=== PATIENT | female | born 1975 | race African-American/Black ===

== ENCOUNTER 2023-10-17 05:05 | Inpatient (IN) | payer OTHER, SELFPAY ==
[2023-09-27 12:17] VITALS: BMI 26.5
[2023-09-27 13:01] LABS: % Basophils 0.8 % (0-2); % Eosinophils 7.3 % (0-6); % Immature Granulocytes 0.2 % (0-0.5); % Lymphocytes 29.9 % (20.5-51.1); % Monocytes 13.1 % (1.7-9.3); % Neutrophils 48.7 % (42.2-75.2); Absolute Basophils 0.1 10^3/uL (0-0.2); Absolute Eosinophils 0.5 10^3/uL (0-0.7); Absolute Lymphocytes 1.8 10^3/uL (1.2-3.4); Absolute Monocytes 0.8 10^3/uL (0.1-0.6); Hematocrit 33.9 % (37.0-47.0); Mean Corp Hgb Conc. 32.4 g/dL (33.0-37.0); Mean Corpuscular Hgb 28.7 pg (27.0-31.0); Mean Corpuscular Volume 88.5 fL (81.0-99.0); Mean Platelet Volume 10.2 fL (7.4-10.4); Nucleated Red Blood Cells % 0 %; Platelet Count 298 10^3/uL (130-400); Red Blood Cell Count 3.83 10^6/uL (4.20-5.40); Red Cell Dist. Width 19.1 % (11.5-14.5); White Blood Cell Count 6.1 10^3/uL (4.8-10.8)
[2023-09-27 13:02] LABS: Urine Albumin Negative (Neg - Trace); Urine Bilirubin Negative (Negative); Urine Character Clear (Clear); Urine Color Yellow; Urine Glucose Negative (Negative); Urine Ketone Trace (Negative); Urine Leukocyte Negative (Negative); Urine Nitrite Negative (Negative); Urine Occult Blood Trace (Negative); Urine Urobilinogen Negative (Neg - 1+)
[2023-09-27 13:10] LABS: Urine Bacteria Few (Negative); Urine Mucus Few; Urine Red Blood Cell 0-2 /HPF (0-2); Urine Squamous Cell 16-20 /LPF (Few); Urine White Cell 0-2 /HPF (0-5)
[2023-09-27 13:12] LABS: INR 1.02; PT 13.2 Sec (11.4-14.6)
[2023-09-27 13:13] LABS: APTT 29.4 Sec (23.4-35.0)
[2023-09-27 13:34] LABS: ALT (SGPT) 12 U/L (0-35); AST (SGOT) 20 U/L (14-36); Albumin 4.2 g/dl (3.5-5.0); Alkaline Phosphatase 61 U/L (38-126); Blood Urea Nitrogen 12 mg/dl (7-17); Calcium 9.3 mg/dl (8.4-10.2); Carbon Dioxide 28 mmol/L (22-30); Chloride 103 mmol/L (98-107); Direct Bilirubin 0.2 mg/dl (0.0-0.4); Estimated Creatinine Clearance 101 ml/min; Glucose 83 mg/dl (70-99); Potassium 3.9 mmol/L (3.5-5.1); Sodium 135 mmol/L (135-145); Total Bilirubin 0.4 mg/dl (0.2-1.3); Total Protein 7.3 g/dl (6.3-8.2); eGFR > 60.00
[2023-09-27 14:07] LABS: Glycohemoglobin (HgbA1c) 4.9 % (4.0-5.6)
--- NOTE | 2023-09-27 14:53 | CM ---
spoke to pt in PAT's, we discussed preop MVR teaching including driving and lifting restrictions. she is prev indep, lives with her husb in a ranch home with a basement and 8 steps to enter. she denies dme's. she has the cardiac educ book, soap and
instructions. she is agreeable to [facility] after dc, and requested [facility]- they will be set up to follow INR checks. plan is for mechanical MVR 10/17/23, cm role explained and all questions answered.
[2023-10-17] VITALS (9 sets, daily range): BP systolic 94–113; BP diastolic 61–83; PULSE 78; BMI 25.6
[2023-10-17] MEDS: LOPRESSOR 25 MG PO (05:45)
[2023-10-17] MEDS: PROTONIX 40 MG PO (05:45)
[2023-10-17] MEDS: MAGNESIUM OXIDE 500 MG PO (05:45)
[2023-10-17] MEDS: BACTROBAN 2% OINTMENT 1 APPLIC NASAL ×2 (05:46→20:05)
[2023-10-17 06:00] LABS: HCG, Urine Qualitative Screen Negative
--- NOTE | 2023-10-17 06:22 | W.CVOR.SURPR ---
CVOR Surgeon Immed Pre Op
-
I have examined this patient prior to performance of the scheduled procedure.
The patient's condition is unchanged from the time of the dictated/written History and
Physical and the patient is able to undergo the scheduled procedure.
MV Replacement (Mechanical Prosthesis)
[2023-10-17 07:27] LABS: Urine Albumin Negative (Neg - Trace); Urine Bilirubin Negative (Negative); Urine Character Clear (Clear); Urine Color Straw; Urine Glucose Negative (Negative); Urine Ketone 1+ (Negative); Urine Leukocyte Negative (Negative); Urine Nitrite Negative (Negative); Urine Occult Blood Negative (Negative); Urine Urobilinogen Negative (Neg - 1+); Urine pH 6.5 (5.0-9.0)
[2023-10-17 07:41] LABS: ACT+ - POC 85 Seconds (82-134); B.E. - POC -0.9 mmol/L; Glucose - POC 94 mg/dl (65-99); HCO3 - POC 23 mmol/L (21-29); Hematocrit - POC 29 % PCV (37-47); Hemodilution- POC No; Hemoglobin Calculated - POC 9.8; Ionized Calcium - POC 1.14 mmol/L (1.12-1.27); O2 Saturation %Calculated-POC 99.9 5 (92-96); PCO2 - POC 36 mmHg (35-45); PO2 - POC 295 mmHg (80-100); Potassium - POC 2.7 mmol/L (3.6-5.0); Sodium - POC 140 mmol/L (135-145); pH - POC 7.42 (7.35-7.45)
[2023-10-17 08:33] LABS: ACT+ - POC 461 Seconds (82-134)
--- NOTE | 2023-10-17 08:42 | CM ---
reviewed chart. Mrs. Daly is in the operating room today. Prior to admission she resides with her spouse in a rancher style home with eight steps to enter. Prior to admission he was independent with ambulation and adls. She does not have any DME
in the home. She is agreeable to [facility] for nursing and INR blood draws. Medical work-up in progress, The discharge plan is to return home with her spouse and [facility] when medically stable.
[2023-10-17 08:59] LABS: ACT+ - POC 437 Seconds (82-134)
[2023-10-17 09:06] LABS: B.E. - POC -0.2 mmol/L; Glucose - POC 128 mg/dl (65-99); HCO3 - POC 24 mmol/L (21-29); Hematocrit - POC 23 % PCV (37-47); Hemodilution- POC Yes; Hemoglobin Calculated - POC 7.7; Ionized Calcium - POC 0.85 mmol/L (1.12-1.27); PCO2 - POC 38 mmHg (35-45); PO2 - POC 386 mmHg (80-100); Potassium - POC 4.7 mmol/L (3.6-5.0); Sodium - POC 136 mmol/L (135-145); pH - POC 7.41 (7.35-7.45)
[2023-10-17 09:31] LABS: B.E. - POC 0.1 mmol/L; Glucose - POC 177 mg/dl (65-99); HCO3 - POC 25 mmol/L (21-29); Hematocrit - POC 33 % PCV (37-47); Hemodilution- POC Yes; Hemoglobin Calculated - POC 11.3; Ionized Calcium - POC 0.96 mmol/L (1.12-1.27); O2 Saturation %Calculated-POC 99.8 5 (92-96); PCO2 - POC 41 mmHg (35-45); PO2 - POC 249 mmHg (80-100); Potassium - POC 4.3 mmol/L (3.6-5.0); Sodium - POC 136 mmol/L (135-145); pH - POC 7.39 (7.35-7.45)
[2023-10-17 09:39] LABS: ACT+ - POC 586 Seconds (82-134)
[2023-10-17 10:31] LABS: ACT+ - POC 107 Seconds (82-134)
[2023-10-17 10:35] LABS: Glucose - POC 39 mg/dl (65-99); HCO3 - POC 22 mmol/L (21-29); Hematocrit - POC 29 % PCV (37-47); Hemodilution- POC Yes; Hemoglobin Calculated - POC 9.9; Ionized Calcium - POC 1.33 mmol/L (1.12-1.27); O2 Saturation %Calculated-POC 99.9 5 (92-96); PCO2 - POC 42 mmHg (35-45); PO2 - POC 354 mmHg (80-100); Potassium - POC 2.9 mmol/L (3.6-5.0); Sodium - POC 142 mmol/L (135-145); pH - POC 7.33 (7.35-7.45)
[2023-10-17 10:49] LABS: B.E. - POC -3.7 mmol/L; Glucose - POC 30 mg/dl (65-99); HCO3 - POC 22 mmol/L (21-29); Hematocrit - POC 34 % PCV (37-47); Hemodilution- POC Yes; Hemoglobin Calculated - POC 11.7; Ionized Calcium - POC 1.31 mmol/L (1.12-1.27); O2 Saturation %Calculated-POC 99.9 5 (92-96); PCO2 - POC 41 mmHg (35-45); PO2 - POC 328 mmHg (80-100); Potassium - POC 2.9 mmol/L (3.6-5.0); Sodium - POC 144 mmol/L (135-145); pH - POC 7.34 (7.35-7.45)
--- NOTE | 2023-10-17 10:49 | W.PN.CT.SURG ---
Addendum entered and electronically signed by Antoni Kunz MD 10/17/23 11:11:
Correction, resting mean gradient on TTE of 8-10mmHg across the MV indicating moderate MS and at least moderate MR.
Original Note:
CT Surgery Operative Note
-
CARDIAC SURGERY OPERATIVE REPORT
Preoperative Diagnosis: Mixed pathology, mitral valve stenosis and insufficiency secondary to rheumatic heart disease
Postoperative Diagnosis: Same
Procedure(s) Performed:
1. Right mini thoracotomy with right common femoral artery and vein cannulation under KIM guidance
2. Chordal sparing mitral valve replacement (25/33mm ON-X mechanical valve)
3. Placement temporary ventricular pacing wires
4. Trans esophageal echocardiography
Date of Surgery: 10/17/2023
Comorbidities:
1. Rheumatic fever, rheumatic heart disease
2. Mixed mitral valve stenosis/insufficiency, type IIIa classification
3. Pulmonary hypertension
4. PACs
5. Menorrhagia history of taking TXA, now with an intrauterine device
6. Baseline anemia
Attending Surgeon: Antoni Kunz MD, MS
Assistants: Antoni Montes PA-C (present and necessary for retraction, suctioning, exposure, suture management, wound closure, etc. under my direction)
Anesthesiology: Vijay Antoine MD and Richi Frances CRNA
Scrub and Circulating RNs: Racheal Suarez RN, Jordi Warren RN
Ceramic Coater Machine: Tres Phillips CCP
Anesthesia: GETA
EBL: per perfusion records
Products: None
CPB Time: 89 minutes
Aortic Cross Clamp Time: 67 minutes
Indication(s) for Procedures: This is a 48-year-old female who I been following for over a year and a half. She was seen by her outpatient career coach and was found to have shortness of breath with light activity such as vacuuming and walking with
her . Both she and her admit that she has been falling behind now with their walks and no longer tolerating going uphill. He had multiple studies including a stress echocardiogram. Her baseline mean gradient across the mitral valve
is approximately 8 mmHg with moderate to moderate severe mitral valve sufficiency. During stress her mean gradient across the mitral valve increased to high 20s and her mitral valve insufficiency increased. She states that she possibly had a
history of rheumatic fever as a child when she lived in [place]. She also has very heavy menses and requires TXA at baseline. Outpatient discussion with her supply and distribution manager ultimately placed an IUD to aid with this that she no longer takes TXA. Multi
disparate discussion between cardiology, echocardiography and myself determined that she has severe mitral valve disease with mixed pathology. She ultimately decided to move forward with surgery and opted for mechanical prosthesis given her young
age. She understands she will be taking lifelong Coumadin.
Mitral Valve Description: Heavily fibrotic anterior and posterior leaflets with typical fishmouth appearance and fused commissures calcification of the posterior leaflet towards the P2 segment. Shortened cords of both anterior and posterior
leaflets. Calcification at the P2 leaflet body.
Implants:
1. 25/33mm ON-X Mechanical MVR, SN [id number]
Specimen:
1. Part of the anterior leaflet of the mitral valve along with cords to the anterior leaflet
Findings: Left ventricular ejection fraction preoperatively was 65% with no regional wall motion abnormalities. Following surgery EF was hyperdynamic at approximately 70% with no new regional wall motion abnormalities. Her mitral valve was
extremely fibrotic and abnormal in appearance with shortened cords and fused commissures with a typical fishmouth appearance. Her mitral valve was replaced with a chordal sparing technique sparing most of the anterior leaflet cords. Eventually it
was relocated posterior towards the posterior annulus and a total of 14 pledgeted 2 Ethibond sutures were placed in an inverted fashion from LV through annulus while plicating the leaflet and then through the sewing cuff. Valve was implanted in
anti anatomic position. After removal of the cross-clamp, there was no significant paravalvular leak. There were several small inherent washing jets that is tanacross to this prosthesis. There was good excursion of both mechanical leaflets. There
is no interaction with any subvalvular apparatus with the leaflets. There is no new AI. She did not require any inotropic support coming off cardiopulmonary bypass. She did not require any blood products. She regained sinus rhythm on her own.
Description of Procedure: The patient was brought to the operating room and placed supine in the table with their right side bumped up and right arm down. Arterial and central access was performed by anesthesiology. The patient was prepped from chin
to toes in the typical sterile fashion. Trans esophageal evaluation of cardiac function and all valvular structures was conducted. Before commencing, a time out was performed by all members of the team. All were in agreement with the procedure and
laterality and I proceeded. A small right groin incision was made to expose the common femoral artery and vein. A total of 40,000 units of heparin was given. A 5-6 cm right lateral thoracotomy was performed over the 4th intercostal space verified by
visualization of the hilum. The common femoral artery and vein were cannulated under transesophageal guidance using open Seldinger technique. The arterial line was verified to have an appropriate bounce and pressure correlating with testing. Once
the ACT was above 400, retrograde autologous priming was done and we commenced cardiopulmonary bypass. Target core temperature was 34�C.
Carbon dioxide was used to flood the field. The course of the phrenic nerve was identified to prevent injury. The pericardium was opened and two stay sutures were placed to facilitate a ``pericardial table.�� The oblique sinus was developed followed
by the inter atrial groove. An antegrade root vent was inserted and secured with a pursestring suture. The pump flow and mean arterial pressure were lowered and an aortic cross clamp was applied to the ascending aorta. A total of 1.2L initial dose
of Antegrade cardioplegia was delivered. We had rapid electro myocardial quiescence at 500 cc of cardioplegia. The ventricle was monitored for distension by echocardiogram during this time. I felt that the aortic cross-clamp was not totally
occlusive and so did reposition the clamp and gave an additional 200 cc of antegrade cardioplegia. The left atrium was incised and enlarged. A left atrial lift retractor was placed. The mitral valve was inspected. The mitral valve was replaced as
described above. The left atriotomy was closed with 3-0 prolene in a running fashion leaving a ventricular vent in place to de-air. After filling the heart, the vent was removed and the prolene was secured with a corknot. A single additional repair
stitch was placed along the left atrial suture line. Unipolar ventricular pacing wire was placed on the base of the right ventricle. The patient was placed into Trendelenburg position and pump flows were lowered. The clamp was slowly removed with
the root vent turned on. De-airing maneuvers were performed. We started to rewarm with a target of 36.5�C.
As the heart recovered, the mitral valve prosthesis and ventricular function were assessed under transesophageal echocardiogram. The LV vent and root vents were removed. Once weaning parameters were satisfactory, cardiopulmonary bypass flow was
lowered until we were off cardiopulmonary bypass the mitral valve prosthesis was inspected again and found to have no new paravalvular leak. All surgical sites were inspected for hemostasis and appeared appropriate. The lines were clamped and the
arterial was relocated to the venous cannula to give back volume. A test dose of protamine was delivered and patient was monitored for any adverse reactions followed by complete protamine dosing. The femoral vessels were decannulated and repaired
as indicated. The pericardium was approximated with 2-0 ethibond sutures secured with corknots. One 19F Jonas drain remained in the pleural space and looped so that it would enter into the pericardium across the oblique sinus. There was an
excellent palpable distal to the MARKET RESEARCH ANALYST cannulation site. Local analgesia was injected to the thoracotomy. The rib space was approximated with #2 ethibond suture. The incision was closed in layers in a running fashion.
All instrument, sponge, and needle counts were confirmed to be correct x 2 at the end of the operation. The patient was transferred to the cardiac intensive care unit in critical but stable condition.
I, Dr. Antoni Kunz, was present, scrubbed for, and performed all critical elements of this procedure.
Antoni Kunz MD, MS
Cardiothoracic Surgeon
[facility]
This dictation was created using the [employer]tron dictation system. Please excuse any grammatical, typographical, or 'sound alike' errors
[2023-10-17 11:10] LABS: Glucose - Point of Care 153 mg/dl (70-99)
--- NOTE | 2023-10-17 11:14 | W.PN.CD ---
Addendum entered and electronically signed by Osmany Hugo MD 10/17/23 17:19:
48 yo female with rheumatic mitral valve disease admitted following mechanical MVR today. She is awake and extubated. Exam with RRR, no murmurs, trace edema. Tele: NSR.
s/p mechanical mitral valve. Doing well. Starting ASA tonight. Eventual coumadin.
Original Note:
Today's Communication / Plan
-
Close post-op monitoring and care with weaning of drips and vent per CT surgery/CVICU protocol
Impression / Plan
-
Assessment/Plan: 48 y/o female (patient of Dr. Camarillo) with hx rheumatic heart disease with mitral valve stenosis/insufficiency, palps/PAC's, and anemia who is now s/p mitral valve replacement.
Mitral valve stenosis and insufficiency secondary to rheumatic heart disease:
-now s/p mechanical mitral valve replacement with Dr. Kunz (10/17/23), via right mini thoracotomy
-s/p placement temporary ventricular pacing wire
-intubated and sedated
-on Levophed
-Lowe and CT in place
-post-op EKG and tele with SR
-intra-op KIM 10/17/23: Normal biventricular function with LVEF of 60-65% by visual inspection. Rheumatic mitral valve with moderate stenosis and regurgitation. Dilated left atrium. Normal left atrial appendage. The remaining cardiac valves are
normal in structure and function. Normal thoracic aorta.
Palpitations/PAC's:
-continue BB and follow telemetry
Anemia:
-monitor post-op
Data:
KIM 05/2023: Normal biventricular size and systolic function without regional wall motion abnormality. Estimated LVEF 65-70%. Thickened mitral valve leaflets. Rheumatic valve appearance. Moderate mitral regurgitation. PISA 0.8 cm2. EROA 0.28 cm2. MR
volume 22 ml. Mild/moderate mitral stenosis. Mean gradient 6-8 mmHg. MVA PHT 1.8 cm2. MVA 3-D planimetry 1.9 cm2.
Physical Exam
Vital Signs/Labs
Vital Signs
Temp Pulse Resp BP Pulse Ox
96.9 F L 85 12 141/91 100
10/17/23 11:08 10/17/23 05:45 10/17/23 11:08 10/17/23 05:45 10/17/23 11:08
10/16/23 10/17/23 10/18/23
06:59 06:59 06:59
Actual Weight 65.5 kg
PT 13.2 Sec (11.4-14.6) 09/27/23 12:27
INR 1.02 09/27/23 12:27
APTT 29.4 Sec (23.4-35.0) 09/27/23 12:27
Physical Exam
Constitutional: No acute distress
EENT: Anicteric
Cardiovascular: Rhythm & rate is regular
Respiratory: Lungs clear to auscul. and Other (intubated and ventilated)
Neuro/Psych: Other (sedated)
Other: Skin (right chest incision without any redness, drainage, or swelling)
Data Reviewed
-
Date of Service: October 17, 2023
EKG: Tracing Personally Visualized and interpreted (NSR)
Echo: Report Reviewed by me (as noted)
Labs: Labs Reviewed by me
[2023-10-17 11:15] LABS: B.E. -3.3 mmol/L; HCO3 22.7 mmol/L (21-28); Ionized Calcium 1.29 mMOL/L (1.15-1.33); PCO2 44 mmHg (32-35); PO2 352 mmHg (83-108); Sodium 137 mMOL/L (136-145); pH 7.32 (7.35-7.45)
[2023-10-17 11:16] LABS: Hematocrit 26.9 % (37.0-47.0); Hemoglobin 8.7 g/dL (12.0-16.0); O2 Therapy vent; Platelet Count 208 10^3/uL (130-400)
[2023-10-17 11:25] LABS: APTT 32.8 Sec (23.4-35.0); INR 1.34; PT 16.4 Sec (11.4-14.6)
[2023-10-17] MEDS: NSS 500 IV (11:25)
[2023-10-17] MEDS: KCL 50 IV ×3 (11:25→18:01)
[2023-10-17] MEDS: NEURONTIN PO (11:26)
[2023-10-17] MEDS: ANCEF 10 IV ×2 (11:26)
--- NOTE | 2023-10-17 11:26 | W.PN.UPDATE ---
Update Note
Progress Note Update
IV fluids: 2400
U.O.:� 235
UF:� 2500
Blood:� none
Wires:� v
Inotropes: none�
Pressors:� levophed
Sedatives:� precedex
�
NEURO: sedated on precedex, pupils +1mm B/L
RESP: #8OT @22cm> 10/500/60/5. Lungs clear B/L. R pleural (2cc on arrival) chest tubes to -20cm suction. Sanguineous drainage
CV: RRR +S1, S2, no S3, no�rub, no murmur. Dermabond to median sternotomy. RIJ w/[place] locked @ 42cm.
ABD: round, soft, no BS
EXT: no edema, +2/4 DP pulses B/L, no femoral bruit, Left radial A-line intact
: Lowe with clear yellow urine
�
A/P: POD #0 s/p MVR(25/33mm ON-X mechanical valve) via right mini thoracotomy
KIM: EF�55-60%
- wean and extubate
- Wean levo for MAPs >65
- Will give LR if fluid resusitation is needed
- Will eventually be on coumadin and will start heparin gtt tomorrow
- will start ASA tonight
- f/u post-op labs
- monitor CT output and UOP
- Cards consulted
�
# acute surgical blood loss anemia-expected
- trend CBC
�
#Hyperglycemia
- insulin infusion x 24h
[2023-10-17 11:36] LABS: Blood Urea Nitrogen 10 mg/dl (7-17); Estimated Creatinine Clearance 80 ml/min; Glucose 145 mg/dl (70-99); Magnesium 2.8 mg/dl (1.6-2.3)
--- NOTE | 2023-10-17 11:47 | CON.INTV ---
Consultation
Consultation Request
Date/Time Consultation Requested: 10/16
Date/Time Consultation Performed: 10/16
Reason for Consultation: Critical care
Medical History
-
History of Present Illness:
History obtained from the chart as patient currently intubated and sedated. Patient is a 48-year-old female with history of persistent progressive shortness of breath, fatigue with simple ADLs. Workup revealed mitral valve disease. Patient
underwent cardiothoracic evaluation including chest and abdominal imaging and PFTs. Patient underwent mitral valve repair, chordal sparing 10/17/2023 without complication. We are asked to help from critical care standpoint 10/17/2023. Reviewed
preoperative catheterization March [address] chest 10/12/2023 done at [facility]
Of note, preoperative PFT noted, moderate obstructive lung disease with bronchodilator response. Ongoing intermittent smoking history noted. There is no clear history of asthma
.
PMH: Mitral valve prolapse with progressive mitral valvular disease, anemia, history of pulmonary hypertension, hypercholesterolemia, premature atrial contractions, history of
Past Medical History
Past Medical History: None (See above)
Past Surgical History: None (See above)
Social History
Tobacco: Former Smoker (63-cgxd-tlda history, continues to smoke occasional cigarettes)
Alcohol: Occasional
Drug: None
Personal:
Living: With Family
Family History
Family History: Other (Father alive with hypertension, mother alive with history of seizure disorder, hypertension. 1 brother from lupus. 3 children healthy . 3 sisters healthy)
Allergies / Home Medications
Allergies
Allergy/AdvReac Type Severity Reaction Status Date / Time
No Known Allergies Allergy Verified 09/20/23 11:11
Home Medications
�Medication �Instructions �Recorded �Confirmed �Last Taken �Type
Gentle Iron 40 mg PO QPM 06/01/23 10/17/23 1 Week Ago History
~10/10/23
carvedilol 3.125 mg tablet (Coreg) 3.125 mg PO DAILY 1210/17/23 10/13/23 08:00 History
Probiotic 1 tab PO DAILY 09/20/23 10/17/23 1 Week Ago History
~10/10/23
Women's Multi 1 tab PO DAILY 09/20/23 10/17/23 1 Week Ago History
~10/10/23
Review of Systems
-
Unable to Obtain full review of systems at this time due to: Patient Intubation
Vitals / Labs / Diagnostic Testing
Vital Signs
Temp Pulse Resp BP Pulse Ox
96.7 F L 78 14 141/91 100
10/17/23 11:34 10/17/23 11:30 10/17/23 11:30 10/17/23 05:45 10/17/23 11:30
Lab Data
10/17/23 11:01
Laboratory Results
10/17/23
11:01
PT 16.4 H
INR 1.34
APTT 32.8
pH 7.32 L
pCO2 44 H
pO2 352 H
HCO3 22.7
O2 Delivery Level vent
Diagnostic Testing:
Physical Exam
-
HEENT: Normocephalic, Anicteric and Other (Right IJ, left upper extremity A-line, chest tube)
Cardiovascular: S1/S2, Regular Rhythm, Murmur (n) and Rub (n)
Respiratory: Wheeze (n), Rales (n), Rhonchi (n) and Non-Labored Respirations
GI: Soft, Non Distended and Non Tender
Neurology: Other (Sedated)
Skin: Good Color
General: Comfortable
Assessment
-
48-year-old female with history of mitral valve stenosis secondary to rheumatic heart disease, progressive shortness of breath/dyspnea, who is now status post mechanical mitral valve replacement via minithoracotomy. We are asked to help from
critical care standpoint 10/17/2023
S/p mitral valve replacement, chordal sparing, minithoracotomy
10/17/2023
Progressive dyspnea, fatigue
Moderate mitral stenosis/regurgitation
Mean gradient 6-8 mmHg
Normal biventricular function
Mild pulm hypertension per catheterization 03/21/2023
RVSP 31, per Echo
Postoperative anemia hyperglycemia
Conditions present prior to admission
History anemia
Tobacco history, ongoing
22-fifo-xqck history
Moderate obstructive lung disease, bronchodilator response
FEV1 1.68/62%, 17% improvement post bronchodilators
Ratio 67
Mosaic pattern per CT imaging 10/12/2023 (Vlad rev)
Family history of lupus (brother)
Plan/recommendations
At this time, patient is critically ill but stable
Requiring intermittent norepinephrine
Postoperative chest x-ray adequate. Minimal output via chest tube
Postoperative EKG, sinus rhythm
Remains stable on volume-cycled ventilation, normal airway pressures
Moving forward
At this time, patient appears to be stable
Continue weaning from ventilator per CT surgery protocol
Preoperative PFTs with obstructive lung disease and bronchodilator response
Minimal smoking history noted
For now would continue with nebulized albuterol as needed
Airway pressures on ventilator do not suggest significant obstructive airways disease, but would follow-up plateau pressure (not recorded)
Interestingly, CT chest from 10/12/2023 reveals mosaic pattern per my review. This can be seen with airways disease
Monitor hemoglobin, transfuse as needed per CT surgery protocol
Normal biventricular function preoperatively
Family history of lupus noted
Ongoing intermittent tobacco history noted
Tobacco cessation efforts will be discussed during hospital stay
Reviewed with critical care nursing
We will follow
TCCT 31 min
[2023-10-17 12:00] LABS: Glucose - Point of Care 32 mg/dl (70-99)
[2023-10-17] MEDS: TORADOL 15 MG IV ×2 (12:03→18:00)
[2023-10-17] MEDS: DEXTROSE 50% SYRINGE 12.5 GRAMS IV (12:03)
[2023-10-17 12:10] LABS: B.E. -2.8 mmol/L; HCO3 22.6 mmol/L (21-28); O2 Saturation % 99.1 % (94-98); PCO2 41 mmHg (32-35); PO2 162 mmHg (83-108); pH 7.35 (7.35-7.45)
[2023-10-17 12:11] LABS: Glucose - Point of Care 106 mg/dl (70-99)
--- NOTE | 2023-10-17 12:15 | PTCARENOTE ---
Rec'd pt from [facility] mechanically ventilated and sedated. Pt with RT IJ cordis and left radial gregory. Pt on IV precedex at 0.5 mcg/kg/hr, IV Levo at 2 mcg/min and IV insulin. Labs sent. EKG done and CXR done. Levo weaned to off. Labs replaced as per
protcol. Insulin drip d/c'd due to hypoglycemia. 1/2 amp dextrose given. Bear hugger in place at this time. Pt opens eyes to name, following commands and moving all extremities spontaneously and to command. Precedex off. See worklist for VS/I and O
and assessments.
--- NOTE | 2023-10-17 12:40 | PTCARENOTE ---
Attempted CPAP at this time, Pt with periods of apnea will try again at another time.
[2023-10-17 13:01] LABS: Glucose - Point of Care 76 mg/dl (70-99)
[2023-10-17] MEDS: ZOFRAN 4 MG IV (14:10)
[2023-10-17 14:15] LABS: Glucose - Point of Care 110 mg/dl (70-99)
--- NOTE | 2023-10-17 14:21 | PTCARENOTE ---
Pt placed on CPAP 5 PS 5 .40%. TV 750 , RR 14-20. Pulse ox 100%. Pt bathed and turned side to side, tolerated well. ABG sent. Awaitiing results at this time.
[2023-10-17 14:25] LABS: B.E. -3.1 mmol/L; HCO3 20.6 mmol/L (21-28); O2 Saturation % 99.5 % (94-98); PCO2 31 mmHg (32-35); PO2 188 mmHg (83-108); Potassium 3.7 mMOL/L (3.5-5.1); pH 7.43 (7.35-7.45)
--- NOTE | 2023-10-17 14:43 | PTCARENOTE ---
Pt extubated and placed on 6l n/c oxygen. Pt encouraged to cough and deep breath and to use IS.
[2023-10-17] MEDS: TYLENOL 1000 MG PO ×2 (15:03→22:15)
[2023-10-17] MEDS: LOW STRENGTH ASPIRIN 81 MG PO (15:03)
[2023-10-17 15:12] LABS: Glucose - Point of Care 135 mg/dl (70-99)
[2023-10-17 15:27] LABS: Hematocrit 27.9 % (37.0-47.0); Hemoglobin 9.2 g/dL (12.0-16.0); Platelet Count 252 10^3/uL (130-400)
[2023-10-17 16:16] LABS: Glucose - Point of Care 117 mg/dl (70-99)
[2023-10-17] MEDS: PACERONE 200 MG PO ×2 (16:21→22:15)
[2023-10-17] MEDS: NEURONTIN 100 MG PO ×2 (16:21→22:15)
[2023-10-17] MEDS: ANCEF 5 IV (16:21)
[2023-10-17] MEDS: DILAUDID 0.5 MG IV ×2 (16:27→19:28)
[2023-10-17 17:05] LABS: Glucose - Point of Care 103 mg/dl (70-99)
--- NOTE | 2023-10-17 17:15 | PTCARENOTE ---
sudheer reynolds/jeff as ordered.
[2023-10-17 18:10] LABS: Glucose - Point of Care 115 mg/dl (70-99)
--- NOTE | 2023-10-17 18:17 | PTCARENOTE ---
Pt resting comfortably at this time.
[2023-10-17 19:17] LABS: Glucose - Point of Care 95 mg/dl (70-99)
[2023-10-17] MEDS: SENOKOT-S 1 TABLET PO (20:05)
--- NOTE | 2023-10-17 20:15 | PTCARENOTE ---
Assumed care of pt from dayshift RN. Walking rounds completed. Pt AAOx3. JOSE. Following commands appropriately. Pt states she is tired. Pt SR on monitor. Temporary epicardial v-wire intact, box not connected to pt. HR 70. Palpable pulses. No edema.
BP stable. Pt on 2 L NC. POX 100%. Lung sounds diminished at the base. Deep breathing and IS encouraged. Pt has a frequent cough that was present before admission. Right pleural CT to -20 wall suction intact, no airleak/tidaling/crepitus noted
at this time. Abdomen soft/nontender. Hypoactive BS. Lowe catheter CDI and pt voiding yellow urine. Right fem puncture sites x2 CDI. Right mid chest incision CDI w/ 4x4 gauze. Right upper breast incision CDI w/ surgical adhesive. Right IJ cordis
CDI. Glycemic protocol followed. Pt c/o pain - see MAR. See worklist for full nursing assessment, VS, and interventions. Call guzman within reach. Pt at the bedside.
[2023-10-17 21:10] LABS: Glucose - Point of Care 114 mg/dl (70-99)
[2023-10-17 23:25] LABS: Glucose - Point of Care 88 mg/dl (70-99)
[2023-10-17] MEDS: FLEXERIL 5 MG PO (23:33)
[2023-10-18] VITALS (16 sets, daily range): BP systolic 88–115; BP diastolic 51–80; PULSE 80; O2SAT 99–100; BMI 25.6
[2023-10-18] MEDS: TORADOL 15 MG IV ×2 (00:08→10:53)
--- NOTE | 2023-10-18 01:00 | PTCARENOTE ---
Pt reassessed. SR on monitor. HR 70s. BP stable. Pt on 2 L NC. POX 100%. CT assessment unchanged from previous. Lowe catheter CDI. Pt voiding yellow urine. All surgical sites stable. Glycemic protocol followed. Pt c/o pain - see AUG. Pt
repositioned in bed. Call guzman within reach.
[2023-10-18] MEDS: ANCEF 5 IV ×2 (01:09→09:22)
[2023-10-18] MEDS: DILAUDID 0.5 MG IV ×3 (01:10→23:09)
[2023-10-18 01:15] LABS: Glucose - Point of Care 89 mg/dl (70-99)
[2023-10-18 03:22] LABS: Glucose - Point of Care 87 mg/dl (70-99)
[2023-10-18 03:39] LABS: Hematocrit 27.7 % (37.0-47.0); Hemoglobin 8.9 g/dL (12.0-16.0); Mean Corp Hgb Conc. 32.1 g/dL (33.0-37.0); Mean Corpuscular Hgb 28.8 pg (27.0-31.0); Mean Corpuscular Volume 89.6 fL (81.0-99.0); Mean Platelet Volume 10.2 fL (7.4-10.4); Platelet Count 225 10^3/uL (130-400); Red Blood Cell Count 3.09 10^6/uL (4.20-5.40); Red Cell Dist. Width 17.2 % (11.5-14.5); White Blood Cell Count 17.3 10^3/uL (4.8-10.8)
[2023-10-18 03:50] LABS: INR 1.19; PT 14.9 Sec (11.4-14.6)
[2023-10-18 03:51] LABS: APTT 32.3 Sec (23.4-35.0)
--- NOTE | 2023-10-18 04:00 | PTCARENOTE ---
Previous assessment unchanged. Pt SR on the monitor. HR 70s. BP stable. Pt maintained on 2 L NC. POX 100%. CT assessment unchanged from original. Pt repositioned in bed. Labs drawn and sent. EKG obtained. Call guzman within reach.
[2023-10-18 04:14] LABS: Blood Urea Nitrogen 16 mg/dl (7-17); Calcium 9.3 mg/dl (8.4-10.2); Carbon Dioxide 19 mmol/L (22-30); Chloride 109 mmol/L (98-107); Estimated Creatinine Clearance 80 ml/min; Glucose 78 mg/dl (70-99); Magnesium 2.3 mg/dl (1.6-2.3); Potassium 4.4 mmol/L (3.5-5.1); Sodium 138 mmol/L (135-145); eGFR > 60.00
--- NOTE | 2023-10-18 04:42 | W.PN.CT ---
Today's Communication / Plan
-
-pod #1
-no issues overnight
-drips: insulin
-CT outut: R pleural 50/110 in 12/24 hrs, no air leak
-swan and a-line dcd 10/16
-d/c insulin
-d/c Lowe
-current meds: ASA, Lopressor, Amio, Protonix, Neurontin. Plans to start iv Heparin and Coumadin on 10/17 for mechanical valve
-encourage IS, OOB
Assessment / Plan
-
- Mod MR/mod MS - s/p Chordal sparing mitral valve replacement (25/33mm ON-X mechanical valve) via R mini thoracotomy on 10/17/[address] Kunz, pod #1
- Intraop KIM: LVEF preop was 65% with no regional wma. Following surgery, EF was hyperdynamic at approximately 70% with no new regional wma. There were several small inherent washing jets that is [place] to this prosthesis. There was good excursion
of both mechanical leaflets. There is no interaction with any subvalvular apparatus with the leaflets. There is no new AI.
- Rheumatic fever, rheumatic heart disease in childhood
- Mixed mitral valve stenosis/insufficiency, type IIIa classification
- Pulmonary hypertension
- PACs, palpitations
- Menorrhagia history of taking TXA (tranexamic acid), now with an intrauterine device
- Baseline anemia
- mild HLD
- Pterygium of b/l eyes
- Anxiety
- Acute on chronic blood loss anemia - stable without transfusion
- Acute postop atelectasis
- Suspected acute postop pericarditis on ECG
- Acute postop hypovolemia with subsequent hypervolemia
Discussed patient care with: Nursing and Care Team
Subjective
Procedure
- s/p Chordal sparing mitral valve replacement (25/33mm ON-X mechanical valve) via R mini thoracotomy on 10/17/[address] Kunz
-
Date of Service: October 18, 2023
Objective Data
-
PT 16.4 Sec (11.4-14.6) H 10/17/23 11:01
INR 1.34 10/17/23 11:01
APTT 32.8 Sec (23.4-35.0) 10/17/23 11:01
Vital Signs
Vital Signs
Temp Pulse Resp BP Pulse Ox
98 F 78 12 102/52 100
10/18/23 00:00 10/18/23 00:00 10/18/23 00:00 10/18/23 00:00 10/18/23 00:00
CT Intake/Output/Weight
10/17/23 10/17/23 10/18/23
06:59 18:59 06:59
Intake Total 166.1 / 231.0 64.9 / 231.0
Output Total 850 / 1140 290 / 1140
Balance -683.9 / -909.0 -225.1 / -909.0
SaO2: 100
Physical Exam
-
General: Awake and AOx3
Cardiovascular: Regular rate & rhythm, No Murmurs and No Rub
Respiratory: Decreased Breath Sounds
Incision: Clean, Dry and Dressing Intact
Extremities: No Edema (2+ DP b/l)
Data Reviewed
-
Lab Results: Results Reviewed
Medications: Active Meds Reviewed
Chest X-Ray: Report Reviewed and Image Reviewed
ECG: Report Reviewed and Image Reviewed
[2023-10-18 05:09] LABS: Glucose - Point of Care 84 mg/dl (70-99)
[2023-10-18] MEDS: TYLENOL 1000 MG PO ×3 (06:09→22:05)
--- NOTE | 2023-10-18 06:15 | PTCARENOTE ---
Mynor Sanabria. Pt OOB to chair. Pt on RA. POX 100%. VSS.
[2023-10-18] MEDS: MAGNESIUM OXIDE 500 MG PO ×2 (07:43→20:20)
[2023-10-18] MEDS: LIDOCAINE 4% PATCH 1 PATCH TOPICAL (07:43)
[2023-10-18] MEDS: LOW STRENGTH ASPIRIN 81 MG PO (07:43)
[2023-10-18] MEDS: PACERONE 200 MG PO ×3 (07:43→22:05)
[2023-10-18] MEDS: PROTONIX 40 MG PO (07:43)
[2023-10-18] MEDS: SENOKOT-S 1 TABLET PO ×2 (07:43→20:20)
[2023-10-18] MEDS: LOPRESSOR 12.5 MG PO ×2 (07:43→20:20)
[2023-10-18] MEDS: ROXICODONE 5 MG PO ×4 (07:43→20:32)
[2023-10-18] MEDS: NEURONTIN 100 MG PO ×3 (07:43→22:05)
--- NOTE | 2023-10-18 07:45 | W.PN.ANS.POP ---
Anesthesia Post Operative
- Anesthesia Post Op Note
Vital Signs Stable-See Nursing Note: Yes
Airway Patent: Yes
Adequate Pain Control: Yes
Change in Mental Status: No
Current Postoperative Nausea & Vomiting: No
Anesthesia Complications: No
General Anesthetic Recall: No
Unplanned Admission: No
Post Op Hydration Adequate: Yes
[2023-10-18 07:49] LABS: Glucose - Point of Care 95 mg/dl (70-99)
--- NOTE | 2023-10-18 07:50 | W.PN.CD ---
Today's Communication / Plan
-
continue post-op care
Impression / Plan
-
Assessment/Plan: 48 y/o female (patient of Dr. Camarillo) with hx rheumatic heart disease with mitral valve stenosis/insufficiency, palps/PAC's, and anemia who is now s/p mitral valve replacement with mechanical valve.
Mitral valve stenosis and insufficiency 2/2 rheumatic heart disease now s/p mechanical MVR :
-now s/p mechanical mitral valve replacement with Dr. Kunz (10/17/23), via right mini thoracotomy
-s/p placement temporary ventricular pacing wire
-now extubated and OOB in chair
- ECG shows diffuse ST elevation possible pericarditis repeat tomorrow AM
- Heparin to warfarin bridge for mechanical MVR
Palpitations/PAC's: currently SR
-continue BB and follow telemetry
Anemia:
-monitor post-op
Data:
KIM 05/2023: Normal biventricular size and systolic function without regional wall motion abnormality. Estimated LVEF 65-70%. Thickened mitral valve leaflets. Rheumatic valve appearance. Moderate mitral regurgitation. PISA 0.8 cm2. EROA 0.28 cm2. MR
volume 22 ml. Mild/moderate mitral stenosis. Mean gradient 6-8 mmHg. MVA PHT 1.8 cm2. MVA 3-D planimetry 1.9 cm2.
Physical Exam
Vital Signs/Labs
Vital Signs
Temp Pulse Resp BP Pulse Ox
98 F 83 16 110/65 100
10/18/23 00:00 10/18/23 06:00 10/18/23 06:00 10/18/23 06:00 10/18/23 06:00
10/17/23 10/18/23 10/19/23
06:59 06:59 06:59
Actual Weight 144 lb 6.444 oz 144 lb 6.444 oz
10/18/23 03:18
10/18/23 03:18
PT 14.9 Sec (11.4-14.6) H 05/07/24 03:18
INR 1.19 10/18/23 03:18
APTT 32.3 Sec (23.4-35.0) 10/18/23 03:18
Magnesium 2.3 mg/dl (1.6-2.3) 10/18/23 03:18
Physical Exam
Constitutional: No acute distress
EENT: Anicteric
Cardiovascular: Rhythm & rate is regular and Pedal edema is absent
Respiratory: Respiratory effort normal and Lungs clear to auscul.
GI: Soft
Neuro/Psych: AO x 3
Data Reviewed
-
Date of Service: October 18, 2023
Medical Decision Making: Reviewed Test Results
EKG: Tracing Personally Visualized and interpreted (sr)
Echo: Report Reviewed by me (KIM report)
Labs: Labs Reviewed by me
--- NOTE | 2023-10-18 08:02 | W.PN.INTV ---
Today's Communication / Plan
Recommendations
Continue albuterol as needed
Pain control, incentive spirometry
Tobacco cessation discussed. Patient quit smoking prior to admission
She may benefit from outpatient pulmonary follow-up. Information left in chart
We will sign off. Please call with questions
Assessment
-
48-year-old female with history of mitral valve stenosis secondary to rheumatic heart disease, progressive shortness of breath/dyspnea, who is now status post mechanical mitral valve replacement via minithoracotomy. We are asked to help from
critical care standpoint 10/17/2023
S/p mitral valve replacement, chordal sparing, minithoracotomy
10/17/2023
Progressive dyspnea, fatigue
Moderate mitral stenosis/regurgitation
Mean gradient 6-8 mmHg
Normal biventricular function
Mild pulm hypertension per catheterization 03/21/2023
RVSP 31, per Echo
Postoperative anemia hyperglycemia
Conditions present prior to admission
History anemia
Tobacco history, ongoing
[id number] history
Moderate obstructive lung disease, bronchodilator response
FEV1 1.68/62%, 17% improvement post bronchodilators
Ratio 67
Mosaic pattern per CT imaging 10/12/2023 ([facility])
Family history of lupus (brother)
Plan/recommendations
At this time, patient appears comfortable, sitting in chair
Has been weaned off pressors
Extubated without difficulty
Chest tube with minimal drainage
Postoperative EKG, sinus rhythm
Moving forward
At this time, patient appears to be stable
Continue management per CT surgery protocol
Preoperative PFTs with obstructive lung disease and bronchodilator response
Minimal smoking history noted
For now would continue with nebulized albuterol as needed
No wheezing on exam
Interestingly, CT chest from 10/12/2023 reveals mosaic pattern per my review. This can be seen with airways disease
Monitor hemoglobin, transfuse as needed per CT surgery protocol
Normal biventricular function preoperatively
Family history of lupus noted
Ongoing intermittent tobacco history noted
Tobacco cessation efforts will be discussed during hospital stay
Patient states she quit smoking just prior to admission
Follow-up information left in chart for obstructive airway disease
Patient transferred to telemetry. We will sign off. Please call with questions
Subjective Dataa
Subjective Data
Date of Service:
Date of Service: October 18, 2023
Subjective:
Patient extubated without difficulty. Has some mild incisional discomfort, otherwise denies nausea, shortness of breath. Chest tube in place. at bedside. Patient sitting in chair, appears comfortable
Objective Data
Data Reviewed
Vital Signs / I&O / Oxygen:
Vital Signs
Temp Pulse Resp BP Pulse Ox
98.5 F 78 18 102/64 100
10/18/23 07:51 10/18/23 07:51 10/18/23 07:51 10/18/23 07:00 10/18/23 07:51
Intake and Output
10/17/23 10/18/23 10/19/23
06:59 06:59 06:59
Intake Total 292.7 / 292.7 10.5 / 10.5
Output Total 1360 / 1360 10 / 10
Balance -1067.3 / -1067.3 0.5 / 0.5
SaO2 100
Nasal Cannula flow liters per 2
minute
Physical Exam
General: Comfortable and Other (IJ)
HEENT: Normocephalic and Anicteric
Cardiovascular: S1-S2, Regular Rhythm, Murmur (n) and Rub (n)
Respiratory: Wheeze (n), Crackles (n), Rhonchi (n) and Chest Tube
GI: Soft, Non Distended and Non Tender
Neurology: Awake, Alert and No Motor Deficits
Skin: Cyanosis (n), Jaundice (n) and Rash (n)
Labs/Micro/Reports
Lab Data
10/18/23 03:18
Laboratory Results
10/17/23 10/17/23 10/17/23
11:01 12:00 14:15
PT 16.4 H
INR 1.34
APTT 32.8
pH 7.32 L 7.35 7.43
pCO2 44 H 41 H 31 L
pO2 352 H 162 H 188 H
HCO3 22.7 22.6 20.6 L
O2 Delivery Level vent
10/18/23
03:18
PT 14.9 H
INR 1.19
APTT 32.3
pH
pCO2
pO2
HCO3
O2 Delivery Level
--- NOTE | 2023-10-18 08:30 | PTCARENOTE ---
Assumed care of patient at 0700. Pt is awake, alert, and oriented. Pt with complaints of pain, PRN Roxicodone administered. Pt remains SR with HR 70's. BP 115/70 MAP 82. V wire in place, insulated. Pulse oximetry 100% on room air. Right pleural
chest tube in place, no sign of air leak or crepitus. Pt is due to void. Incision sites intact. Right IJ Cordis in place. Pt remains on insulin gtt at this time.
[2023-10-18] MEDS: BACTROBAN 2% OINTMENT 1 APPLIC NASAL ×2 (09:22→20:21)
[2023-10-18 09:31] LABS: Glucose - Point of Care 95 mg/dl (70-99)
[2023-10-18 09:36] LABS: Hematocrit 28.5 % (37.0-47.0); Hemoglobin 9.2 g/dL (12.0-16.0); Mean Corp Hgb Conc. 32.3 g/dL (33.0-37.0); Mean Corpuscular Hgb 28.8 pg (27.0-31.0); Mean Corpuscular Volume 89.3 fL (81.0-99.0); Mean Platelet Volume 9.9 fL (7.4-10.4); Platelet Count 254 10^3/uL (130-400); Red Blood Cell Count 3.19 10^6/uL (4.20-5.40); Red Cell Dist. Width 17.2 % (11.5-14.5); White Blood Cell Count 19.4 10^3/uL (4.8-10.8)
[2023-10-18 09:47] LABS: APTT 31.5 Sec (23.4-35.0)
[2023-10-18] MEDS: NSS IV (10:47)
[2023-10-18 10:59] LABS: Glucose - Point of Care 107 mg/dl (70-99)
[2023-10-18] MEDS: FLEXERIL 5 MG PO ×2 (12:31→20:32)
[2023-10-18] MEDS: HEPARIN 25000 UNITS/250 ML IV (12:35)
--- NOTE | 2023-10-18 13:30 | PTCARENOTE ---
Pt ambulated in morales with cardiac rehab. Heparin gtt started per order. Pt with continued complaints of right chest pain. Pt remains SR with HR 80's. BP 95/60 MAP 71. Pulse oximetry 98% on room air.
--- NOTE | 2023-10-18 15:02 | CM ---
Reviewed chart. Telephone call to [facility] to make the referral. Sent referral. [facility] to do the INR blood work on Tuesday and with results to Dr. Camarillo.
[2023-10-18] MEDS: FERRLECIT 110 MG IV (16:10)
--- NOTE | 2023-10-18 16:30 | PTCARENOTE ---
Pt able to void in bathroom. IV team to bedside to place additional IV. BP 111/77 MAP 87. Remains SR with HR 80's.
[2023-10-18] MEDS: COUMADIN 5 MG PO (18:17)
[2023-10-18 18:43] LABS: APTT 76.5 Sec (23.4-35.0)
--- NOTE | 2023-10-18 20:45 | PTCARENOTE ---
Pt received from ned RN. Walking rounds completed. Pt AAOx3. Pt JOSE and following commands appropriately. Pt SR on monitor. HR 70s. Temporary epicardial v-wire intact and not connected to the box. BP stable. Palpable pulses. No edema. Pt on RA.
POX 96%. Lung sounds diminished. IS and deep breathing encouraged. Right pleural CT to -20 suction, no airleak/tidaling/crepitus noted at this time. CT dressing changed w/ PA at the bedside. All surgical sites stable. Right IJ cordis and L PIVx1
CDI. Heparin infusing as ordered. Pt c/o pain - see MAR. See worklist for full nursing assessment, interventions, and VS. Call guzman within reach.
[2023-10-19] VITALS (13 sets, daily range): BP systolic 96–127; BP diastolic 64–82; PULSE 92; O2SAT 98–99; BMI 26.5
[2023-10-19] MEDS: LR 250 IV (00:16)
--- NOTE | 2023-10-19 00:45 | PTCARENOTE ---
Previous assessment unchanged. Pt SR on monitor. HR 80s. BP stable. RA. POX 95%. CT assessment unchanged from previous. All surgical sites stable. Pt repositioned in bed. Heparin infusing as ordered. 250 LR ordered and started. Call guzman within
reach.
[2023-10-19 01:18] LABS: APTT 67.9 Sec (23.4-35.0)
[2023-10-19] MEDS: DILAUDID 0.5 MG IV (03:42)
[2023-10-19 03:54] LABS: Hematocrit 26.5 % (37.0-47.0); Hemoglobin 8.5 g/dL (12.0-16.0); Mean Corp Hgb Conc. 32.1 g/dL (33.0-37.0); Mean Corpuscular Hgb 28.6 pg (27.0-31.0); Mean Corpuscular Volume 89.2 fL (81.0-99.0); Mean Platelet Volume 10.4 fL (7.4-10.4); Platelet Count 240 10^3/uL (130-400); Red Blood Cell Count 2.97 10^6/uL (4.20-5.40); Red Cell Dist. Width 17.4 % (11.5-14.5); White Blood Cell Count 14.8 10^3/uL (4.8-10.8)
--- NOTE | 2023-10-19 04:21 | PTCARENOTE ---
Previous assessment unchanged. Pt SR on monitor. HR 80s. BP stable. Pt on RA. POX 95%. CT assessment unchanged. All surgical sites stable. Pt c/o pain - see AUG. Labs drawn and sent. Call guzman within reach.
[2023-10-19 04:25] LABS: Blood Urea Nitrogen 28 mg/dl (7-17); Carbon Dioxide 24 mmol/L (22-30); Chloride 103 mmol/L (98-107); Estimated Creatinine Clearance 70 ml/min; Glucose 117 mg/dl (70-99); Magnesium 2.4 mg/dl (1.6-2.3); Potassium 4.3 mmol/L (3.5-5.1); Sodium 132 mmol/L (135-145); eGFR > 60.00
--- NOTE | 2023-10-19 05:48 | W.PN.CT ---
Today's Communication / Plan
-
-pod #2
-no issues overnight
-CT output: R pleural 55/125 in 12/24 hrs, no air leak
-drips: iv Heparin @500 for mechanical MVR. PTT 68.1
-Coumadin started on 10/17 (got 5 mg). INR 1.5
-current meds: ASA, Lopressor, Amio, Protonix, Neurontin. Plans to start iv Heparin and Coumadin on 10/17 for mechanical valve
-encourage IS, OOB
Assessment / Plan
-
- Mod MR/mod MS - s/p Chordal sparing mitral valve replacement (25/33mm ON-X mechanical valve) via R mini thoracotomy on 10/17/[address] Kunz, pod #2
- Intraop KIM: LVEF preop was 65% with no regional wma. Following surgery, EF was hyperdynamic at approximately 70% with no new regional wma. There were several small inherent washing jets that is [place] to this prosthesis. There was good excursion
of both mechanical leaflets. There is no interaction with any subvalvular apparatus with the leaflets. There is no new AI.
- Rheumatic fever, rheumatic heart disease in childhood
- Mixed mitral valve stenosis/insufficiency, type IIIa classification
- Pulmonary hypertension
- PACs, palpitations
- Menorrhagia history of taking TXA (tranexamic acid), now with an intrauterine device
- Baseline anemia
- mild HLD
- Pterygium of b/l eyes
- Anxiety
- Acute on chronic blood loss anemia - stable without transfusion
- Acute postop atelectasis
- Suspected acute postop pericarditis on ECG
- Acute postop hypovolemia with subsequent hypervolemia
Discussed patient care with: Nursing and Care Team
Subjective
Procedure
- s/p Chordal sparing mitral valve replacement (25/33mm ON-X mechanical valve) via R mini thoracotomy on 10/17/[address] Kunz
-
Date of Service: October 19, 2023
Objective Data
-
PT 14.9 Sec (11.4-14.6) H 10/18/23 03:18
INR 1.19 10/18/23 03:18
APTT Cancelled 10/19/23 00:13
Vital Signs
Vital Signs
Temp Pulse Resp BP Pulse Ox
98.5 F 85 16 96/64 96
10/19/23 00:07 10/19/23 00:07 10/19/23 00:07 10/19/23 00:07 10/19/23 00:07
CT Intake/Output/Weight
10/18/23 10/18/23 10/19/23
06:59 18:59 06:59
Intake Total 126.6 / 292.7 111.0 / 186.0 75 / 186.0
Output Total 510 / 1360 270 / 505 235 / 505
Balance -383.4 / -1067.3 -159.0 / -319.0 -160 / -319.0
SaO2: 96
Physical Exam
-
General: Awake and AOx3
Cardiovascular: Regular rate & rhythm, No Murmurs and No Rub
Respiratory: Decreased Breath Sounds
Incision: Clean, Dry and Dressing Intact. No subcut. emphysema
Extremities: No Edema (2+ DP b/l)
Data Reviewed
-
Lab Results: Results Reviewed
Medications: Active Meds Reviewed
Chest X-Ray: Report Reviewed and Image Reviewed
ECG: Report Reviewed and Image Reviewed
[2023-10-19] MEDS: NSS 500 IV (06:18)
[2023-10-19] MEDS: TYLENOL 1000 MG PO ×3 (06:18→22:41)
[2023-10-19 06:23] LABS: PT 17.9 Sec (11.4-14.6)
[2023-10-19 06:24] LABS: APTT 68.1 Sec (23.4-35.0)
--- NOTE | 2023-10-19 08:21 | PTCARENOTE ---
RN assumed care for outgoing RN, pt oob in chair, aaox4, VSS, RA, Rt IJ cordis, Rt PCT, heparin gtt @ 500unit bridge to coumadin, Insulated wires, will ambulated with staff throughout the shift, possible dced of CT later today.
[2023-10-19] MEDS: LOPRESSOR PO (08:32)
[2023-10-19] MEDS: LOW STRENGTH ASPIRIN 81 MG PO (09:07)
[2023-10-19] MEDS: MUCINEX 600 MG PO ×2 (09:07→19:35)
[2023-10-19] MEDS: PROTONIX 40 MG PO (09:07)
[2023-10-19] MEDS: LASIX 20 MG PO (09:07)
[2023-10-19] MEDS: LOPRESSOR 25 MG PO ×2 (09:07→19:35)
[2023-10-19] MEDS: SENOKOT-S 1 TABLET PO ×2 (09:08→19:35)
[2023-10-19] MEDS: NEURONTIN 100 MG PO ×3 (09:08→22:40)
[2023-10-19] MEDS: BACTROBAN 2% OINTMENT 1 APPLIC NASAL ×2 (09:08→19:36)
[2023-10-19] MEDS: LIDOCAINE 4% PATCH 1 PATCH TOPICAL (09:08)
[2023-10-19] MEDS: PACERONE 200 MG PO ×3 (09:08→22:41)
--- NOTE | 2023-10-19 09:25 | PTCARENOTE ---
Pt assisted back to bed, RtP CT dced. new dressing applied, bedrest for 1hr then oob to chair following with ambulation.
--- NOTE | 2023-10-19 09:43 | W.PN.CD ---
Today's Communication / Plan
-
warfarin with heparin bridge
EKG in AM
Impression / Plan
-
Assessment/Plan: 48 y/o female (patient of Dr. Camarillo) with hx rheumatic heart disease with mitral valve stenosis/insufficiency, palps/PAC's, and anemia who is now s/p mitral valve replacement with mechanical valve.
Mitral valve stenosis and insufficiency 2/2 rheumatic heart disease now s/p mechanical MVR :
-now s/p mechanical mitral valve replacement with Dr. Kunz (10/17/23), via right mini thoracotomy
-Heparin to warfarin bridge for mechanical MVR; cont ASA
-EKG with diffuse ST elevation, but no clinical pericarditis: repeat in AM
Palpitations/PAC's: currently SR
-continue BB and follow telemetry
Anemia:
-monitor post-op
Data:
KIM 05/2023: Normal biventricular size and systolic function without regional wall motion abnormality. Estimated LVEF 65-70%. Thickened mitral valve leaflets. Rheumatic valve appearance. Moderate mitral regurgitation. PISA 0.8 cm2. EROA 0.28 cm2. MR
volume 22 ml. Mild/moderate mitral stenosis. Mean gradient 6-8 mmHg. MVA PHT 1.8 cm2. MVA 3-D planimetry 1.9 cm2.
Physical Exam
Vital Signs/Labs
Vital Signs
Temp Pulse Resp BP Pulse Ox
98.3 F 93 18 110/66 97
10/19/23 07:41 10/19/23 08:15 10/19/23 07:41 10/19/23 07:41 10/19/23 09:35
10/18/23 10/19/23 10/20/23
06:59 06:59 06:59
Actual Weight 65.5 kg 67.9 kg
10/19/23 03:41
10/19/23 03:41
PT 17.9 Sec (11.4-14.6) H 10/19/23 06:04
INR 1.50 10/19/23 06:04
APTT Cancelled 10/19/23 12:00
Magnesium 2.4 mg/dl (1.6-2.3) H 10/19/23 03:41
Physical Exam
Constitutional: No acute distress and Comfortable
EENT: Moist mucous membranes
Cardiovascular: Rhythm & rate is regular, Pedal edema is absent, JVD pressure is normal, Systolic murmur absent and Other (+mechanical valve click)
Respiratory: Respiratory effort normal and Lungs clear to auscul.
GI: Soft, Distention absent and Flat
Neuro/Psych: AO x 3
Data Reviewed
-
Date of Service: October 19, 2023
EKG: Other (NSR 80s, one V triplet)
Labs: Labs Reviewed by me
--- NOTE | 2023-10-19 09:45 | W.PN.UPDATE ---
Update Note
Progress Note Update
Procedure Type:�Isolated CABG
PERIOPERATIVE OUTCOME ESTIMATE %
Operative Mortality 0.592%
Morbidity & Mortality 3.28%
Stroke 0.715%
Renal Failure 0.344%
Reoperation 1.6%
Prolonged Ventilation 1.5%
Deep Sternal Wound Infection 0.107%
Long Hospital Stay (>14 days) 1.71%
Short Hospital Stay (<6 days)* 64.9%
Clinical Summary
Planned Surgery: Isolated CABG, Urgent, First cardiovascular surgery
Demographics: 68 year old, White, male, 91kg, 178cm, BMI: 28.7 kg/m�
Lab Values: Creatinine: 0.5 mg/dL, Hematocrit: 40.7%, WBC Count: 8.1 10�/�L, Platelet Count: 565331 cells/�L
Substance Abuse: Never smoker
Risk Factors / Comorbidities: Hypertension
Coronary Artery Disease: 3 vessels diseased, Unstable Angina, IN: 1 to 7 Days
Valve Disease: Trivial/Trace MR, Trivial/Trace TR
[2023-10-19] MEDS: MAGNESIUM OXIDE PO (09:59)
[2023-10-19] MEDS: ROXICODONE 5 MG PO ×2 (12:13→19:35)
[2023-10-19] MEDS: FLEXERIL 5 MG PO ×2 (12:14→22:39)
--- NOTE | 2023-10-19 12:19 | PTCARENOTE ---
Pt reassessment unchanged from previous, CT dced, RA, ambulated with cardiac rehab, oob in chair, PO Lasix 20mg given, 500ml voided. Pt management.
--- NOTE | 2023-10-19 12:39 | CM ---
Reviewed chart. Met with Mrs. Daly to review discharge plans. She states she is feeling well and maybe able to go home soon. She state prior to admission she resides with her spouse in a one story home with eight to ten steps to enter. She
states prior to admission she was independent with ambulation and adls. She states she does not have any DME in the home. She ambulated 250 feet today. [facility] with results to
the Transport Operations Inspector Office- Dr. Camarillo. Blood draws on Tuesday and . [facility]. She states her mother will be staying with her for awhile when she goes home. Medical work-up in progress. The discharge
plan is to return home with her spouse, mother staying with her [facility] when medically stable.
[2023-10-19] MEDS: FERRLECIT 110 MG IV (14:26)
--- NOTE | 2023-10-19 16:31 | PTCARENOTE ---
Pt reassessment unchanged from previous, VSS, RA, NSR, Vwire disconnected, heparin gtt, ambulating the halls no c/o cp
[2023-10-19] MEDS: COUMADIN 3 MG PO (18:02)
--- NOTE | 2023-10-19 20:30 | PTCARENOTE ---
Assumed care of patient at 1900. Patient found OOB in chair at time of assessment. Patient is AOx4, follows commands appropriately, moves all extremities. Lung sounds are diminished in the bases patient's saO2 96% on RA. Heart sounds have a regular
rate and rhythm, there is a click audible on auscultation. Patient has normal palpable pulses and no noticeable edema. Patient has soft nontender abdomen with active BS no post op BM yet. Patient is voiding in the bathroom. Patient has an 4x4 gauze
dressing over CT wounds that is CDI, a chest incision with 4x4 gauze dressing that is CDI, and R breast incision with gauze dressing that is CDI. Patient has a R IJ cordis receiving KVO and L AC PIV receiving heparin at 500 units per hour. Patient
c/o pain Karian administered per parameters. Patient is stable.
[2023-10-20] VITALS (8 sets, daily range): BP systolic 107–117; BP diastolic 69–76; PULSE 75; O2SAT 99–100; BMI 26.7
--- NOTE | 2023-10-20 00:40 | PTCARENOTE ---
Patient reassessed. VSS. Remains NSR on the monitor. No complaints at this time. Patient is stable.
[2023-10-20 04:24] LABS: Hematocrit 24.9 % (37.0-47.0); Hemoglobin 8.1 g/dL (12.0-16.0); Mean Corp Hgb Conc. 32.5 g/dL (33.0-37.0); Mean Corpuscular Hgb 28.6 pg (27.0-31.0); Mean Platelet Volume 9.8 fL (7.4-10.4); Platelet Count 232 10^3/uL (130-400); Red Blood Cell Count 2.83 10^6/uL (4.20-5.40); Red Cell Dist. Width 17.2 % (11.5-14.5); White Blood Cell Count 10.6 10^3/uL (4.8-10.8)
[2023-10-20 04:37] LABS: PT 34.9 Sec (11.4-14.6)
[2023-10-20 04:39] LABS: APTT 98.5 Sec (23.4-35.0)
--- NOTE | 2023-10-20 05:17 | PTCARENOTE ---
Patient reassessed. VSS. SR with first deg AV block on the monitor. Heparin gtt to be discontinued due to therapeutic INR. No c/o pain. Patient is stable.
[2023-10-20 05:23] LABS: Blood Urea Nitrogen 12 mg/dl (7-17); Calcium 8.6 mg/dl (8.4-10.2); Carbon Dioxide 24 mmol/L (22-30); Chloride 106 mmol/L (98-107); Estimated Creatinine Clearance 94 ml/min; Glucose 101 mg/dl (70-99); Potassium 3.8 mmol/L (3.5-5.1); Sodium 135 mmol/L (135-145); eGFR > 60.00
--- NOTE | 2023-10-20 05:42 | W.PN.CT ---
Today's Communication / Plan
-
-pod #3
-no issues overnight
-drips: IV Heparin @ 500/hr. PTT 98.5
-Coumadin started on 10/17 (got 5, 3 mg). INR 3.40-- stopped iv Heparin this am
-current meds: ASA, Lopressor, Amio, Protonix, Neurontin, Coumadin.
-encourage IS, OOB, continue to ambulate
Assessment / Plan
-
- Mod MR/mod MS - s/p Chordal sparing mitral valve replacement (25/33mm ON-X mechanical valve) via R mini thoracotomy on 10/17/[address] Kunz, pod #3
- Intraop KIM: LVEF preop was 65% with no regional wma. Following surgery, EF was hyperdynamic at approximately 70% with no new regional wma. There were several small inherent washing jets that is [place] to this prosthesis. There was good excursion
of both mechanical leaflets. There is no interaction with any subvalvular apparatus with the leaflets. There is no new AI.
- Rheumatic fever, rheumatic heart disease in childhood
- Mixed mitral valve stenosis/insufficiency, type IIIa classification
- Pulmonary hypertension
- PACs, palpitations
- Menorrhagia history of taking TXA (tranexamic acid), now with an intrauterine device
- Baseline anemia
- mild HLD
- Pterygium of b/l eyes
- Anxiety
- Acute on chronic blood loss anemia - stable without transfusion
- Acute postop atelectasis
- Suspected acute postop pericarditis on ECG
- Acute postop hypovolemia with subsequent hypervolemia
Discussed patient care with: Nursing and Care Team
Subjective
Procedure
- s/p Chordal sparing mitral valve replacement (25/33mm ON-X mechanical valve) via R mini thoracotomy on 10/17/[address] Kunz
-
Date of Service: October 20, 2023
Objective Data
-
PT 17.9 Sec (11.4-14.6) H 10/19/23 06:04
INR 1.50 10/19/23 06:04
APTT Cancelled 10/19/23 12:00
Vital Signs
Vital Signs
Temp Pulse Resp BP Pulse Ox
97.9 F 86 20 127/82 98
10/19/23 23:00 10/19/23 23:00 10/19/23 23:00 10/19/23 23:00 10/19/23 23:00
CT Intake/Output/Weight
10/19/23 10/19/23 10/20/23
06:59 18:59 06:59
Intake Total 135 / 246.0 15 / 15
Output Total 255 / 525 1000 / 1000
Balance -120 / -279.0 -985 / -985
SaO2: 98
Physical Exam
-
General: Awake and AOx3
Cardiovascular: Regular rate & rhythm, No Murmurs and No Rub
Respiratory: Decreased Breath Sounds
Incision: Clean, Dry and Intact
Extremities: No Edema
Data Reviewed
-
Medications: Active Meds Reviewed
Chest X-Ray: Report Reviewed and Image Reviewed
CT Scan: Report Reviewed
ECG: Report Reviewed and Image Reviewed
[2023-10-20] MEDS: TYLENOL 1000 MG PO ×2 (06:37→13:37)
[2023-10-20 07:07] LABS: ALT (SGPT) 76 U/L (0-35); AST (SGOT) 96 U/L (14-36); Alkaline Phosphatase 70 U/L (38-126); Direct Bilirubin 0.2 mg/dl (0.0-0.4); Total Bilirubin 0.2 mg/dl (0.2-1.3); Total Protein 5.6 g/dl (6.3-8.2)
--- NOTE | 2023-10-20 08:00 | PTCARENOTE ---
Assumed care of patient. Walking rounds completed with previous RN. Pt assessed while she was sitting in the chair. Pt alter and oriented x4. Pt rates right lateral chest pain 4/10-states that is tolerable. Denies shortness of breath and nausea. JOSE
with equal strength throughout. NSR on tele with rates in the 70s-80s. BP stable 113/76. +Click. Bilateral radial and DP pulses palpable. No edema noted. POX 98% on RA. Lungs diminished in the bases. IS encouraged-750mL achieved. Frequent productive
cough, mucinex given. Abdomen soft, round, nontender. +BS. +gas. No BM since surgery. Pt voiding in the bathroom independently, no issues reported. Right lateral chest incision covered with 4x4. Right groin incision approximated with skin glue
intact. Old chest tube site covered and dressing CDI. Right IJ cordis and Left AC 22g PIV intact. See MAR for medication administration. See worklist for complete nursing assessment. Plan of care reviewed and pt in agreement.
[2023-10-20] MEDS: LOW STRENGTH ASPIRIN 81 MG PO (08:01)
[2023-10-20] MEDS: LOPRESSOR 25 MG PO (08:01)
[2023-10-20] MEDS: LASIX 20 MG IV (08:01)
[2023-10-20] MEDS: SENOKOT-S 1 TABLET PO (08:01)
[2023-10-20] MEDS: PACERONE 200 MG PO (08:01)
[2023-10-20] MEDS: PROTONIX 40 MG PO (08:01)
[2023-10-20] MEDS: LIDOCAINE 4% PATCH 1 PATCH TOPICAL (08:01)
[2023-10-20] MEDS: NEURONTIN 100 MG PO (08:01)
[2023-10-20] MEDS: MUCINEX 600 MG PO (08:01)
[2023-10-20] MEDS: VITAMIN C 1000 MG PO (08:02)
[2023-10-20] MEDS: BACTROBAN 2% OINTMENT 1 APPLIC NASAL (08:02)
[2023-10-20] MEDS: FLUSH (NSS) 1 FLUSH IV (08:02)
[2023-10-20] MEDS: NSS IV (08:02)
[2023-10-20] MEDS: KCL 40 MEQ PO (08:27)
--- NOTE | 2023-10-20 09:57 | W.PN.CD ---
Addendum entered and electronically signed by Osmany Hugo MD 10/20/23 11:15:
48 yo female admitted following mechanical MVR. She feels well, and is walking hallway. Exam with RRR, no edema, +mechanical valve click. tele: SR 80s. Continue ASA/warfarin.
Original Note:
Today's Communication / Plan
-
Continue current care. Follow INR's. Encourage IS and ambulation as tolerated.
Impression / Plan
-
Assessment/Plan: 48 y/o female (patient of Dr. Camarillo) with hx rheumatic heart disease with mitral valve stenosis/insufficiency, palps/PAC's, and anemia who is now s/p mitral valve replacement with mechanical valve.
Mitral valve stenosis and insufficiency 2/2 rheumatic heart disease:
-now s/p mechanical mitral valve replacement with Dr. Kunz (10/17/23), via right mini thoracotomy
-was on heparin to warfarin bridge- INR 3.4, so heparin stopped. Continue warfarin and monitor INR's closely.
-EKG continues with diffuse ST elevation, but no clinical pericarditis
-echo done today and pending
Palpitations/PAC's: currently SR
-continue BB and follow telemetry
Anemia:
-monitor post-op
Data:
KIM 05/2023: Normal biventricular size and systolic function without regional wall motion abnormality. Estimated LVEF 65-70%. Thickened mitral valve leaflets. Rheumatic valve appearance. Moderate mitral regurgitation. PISA 0.8 cm2. EROA 0.28 cm2. MR
volume 22 ml. Mild/moderate mitral stenosis. Mean gradient 6-8 mmHg. MVA PHT 1.8 cm2. MVA 3-D planimetry 1.9 cm2.
Physical Exam
Vital Signs/Labs
Vital Signs
Temp Pulse Resp BP Pulse Ox
98.4 F 83 16 113/76 98
10/20/23 08:00 10/20/23 08:00 10/20/23 08:00 10/20/23 08:00 10/20/23 09:29
10/19/23 10/20/23 10/21/23
06:59 06:59 06:59
Actual Weight 67.9 kg 68.4 kg
10/20/23 04:17
10/20/23 04:17
PT 34.9 Sec (11.4-14.6) H 10/20/23 04:17
INR 3.40 10/20/23 04:17
APTT 98.5 Sec (23.4-35.0) H 10/20/23 04:17
Magnesium 2.0 mg/dl (1.6-2.3) 10/20/23 04:17
Physical Exam
Constitutional: No acute distress
EENT: Anicteric
Cardiovascular: Rhythm & rate is regular and Other (mechanical heart valve sound present)
Respiratory: Respiratory effort normal and Lungs clear to auscul.
Neuro/Psych: AO x 3
Data Reviewed
-
Date of Service: October 20, 2023
EKG: Other (SR)
Labs: Labs Reviewed by me
--- NOTE | 2023-10-20 09:58 | PTCARENOTE ---
Epicardial v-wire cut with RN and CT DEVELOPMENTAL WRITING INSTRUCTOR. Pt tolerated
--- NOTE | 2023-10-20 10:54 | W.DCSUMMARY ---
Addendum entered and electronically signed by ZARA Farrell 10/20/23 13:42:
Coumadin changed to 2mg daily per Dr. Kunz.
Original Note:
Discharge Summary
Discharge Data
Date of Admission: 10/17/23
Date of Discharge: 10/20/23
-
Pending Results: No
Hospital Course
Primary care physician: Richi Cervantes
Outpatient weed science research technician: Dr. Camarillo
Inpatient consultants: [facility]
Procedures:
1. Mechanical mitral valve replacement
Primary Diagnosis:
1. mitral valve stenosis and insufficiency secondary to rheumatic heart disease
Secondary Diagnoses:
1. Menorrhagia
2. Chronic anemia
3. pterygium B/L eyes
4. Anxiety
5. Pulmonary hypertension
HPI: 48-year-old female was electively admitted on 10/17/2023 for mitral valve replacement.
Hospital course: Patient underwent a chordal sparing mitral valve replacement number 25/33 mm On-X mechanical tissue valve via right mini-thoracotomy utilizing right femoral arterial and vein cannulation via cutdown with Dr. Kunz. Patient received
no intraoperative blood products and returned to CVICU on Levophed, Precedex, and insulin. Patient was extubated 1440 and aspirin initiated. Levophed was weaned off later in the afternoon. On postoperative day #1, heparin infusion was initiated
at 500 cc an hour and Coumadin was administered. Patient received additional Coumadin on postoperative day #2 and INR on postoperative day #3 was 3.4 from 1.5 on 10/18. ALT was mildly elevated at 76. Repeat INR was 3.29. Predischarge TTE reported
EF of 60-65% with AV mean gradient of 3 mmHg, no MR and no pericardial effusion. Patient will be discharged home with prescription for Coumadin 1 mg and instructed not to initiate until 10/20. Transitional nurses will visit patient on 10/20 to
obtain INR and determine further Coumadin dosing. Patient stable for discharge to home
Home medication changes:
Discharge Plan
-
Patient Disposition: Home (Routine Discharge)
Discharge Diagnosis/Procedures: mechanical mitral valve replacement
Condition: Good
Diet: No restrictions
Activity: No strenuous activity
Driving Restrictions: Not until seen by your Dr
Bathing Restrictions: OK to Shower
Blood Work: INR 5/10 with follow up bi weekly
Other Services: Cardiac Rehab
Specialty Instructions: Weigh Daily- Call MD for wt gain/loss 3 lbs overnight/5 lbs in 1 week
Referrals:
[facility] [Outside]
Sweetie Chu MD [Active] -
(Abnormal spirometry, smoking history
3 mo appt)
Michel Camarillo MD [Active] - 11/28/23 3:20 pm
Antoni Kunz MD [Active] - 11/17/23 1:45 pm
Richi Cervantes DO [Family Provider] - in four to six weeks (PhoPlease make an appointment in four to six weeks. )
Prescriptions:
New
acetaminophen 325 mg Tablet
650 mg PO Q4HPRN PRN (Reason: mild pain,headache,temp >101F ) Qty: 0 0RF
ascorbic acid (vitamin C) [Vitamin C] 500 mg Tablet
1,000 mg PO DAILY Qty: 30 1RF
pantoprazole 40 mg Tablet,Delayed Release (Dr/Ec)
40 mg PO DAILY Qty: 30 1RF
metoprolol succinate [Toprol XL] 25 mg tablet extended release 24 hr
25 mg PO DAILY Qty: 30 1RF
warfarin 1 mg tablet
1 mg PO DAILY Qty: 30 2RF
Rx Instructions:
begin 10/20
oxycodone 5 mg Tablet
5 mg PO Q6HPRN PRN (Reason: severe pain) Qty: 20 0RF
Continued
Gentle Iron
40 mg PO QPM
Discontinued
carvedilol [Coreg] 3.125 mg Tablet
3.125 mg PO DAILY
Probiotic
1 tab PO DAILY
Women's Multi
1 tab PO DAILY
Discharge Orders:
Discharge Patient (As Directed); Ordered 10/20/23
Ordered By: Kassie Schultz
Care Plan Goals
Care Plan Goals:
Problem: Readiness for enhanced knowledge related to diagnosis and treatment plan
Goal: Understand your diagnosis and treatment plan needs, including medications if applicable.
Instructions: Know your diagnosis, underlying causes and treatment plan options, including medications if applicable. Consult with your health care team to learn about your diagnosis and treatment plan, including medications if applicable.
Discharge Date and Time
Print Language: AZERI
[2023-10-20] MEDS: FERRLECIT 110 MG IV (11:54)
--- NOTE | 2023-10-20 12:00 | PTCARENOTE ---
Pt reassessed. VSS. NSR on tele with rates in the 70s. Bp stable 117/71. POX 98% on RA. Surgical sites stable. Right IJ cordis and PIV intact. No other acute changes.
[2023-10-20 12:18] LABS: INR 3.29
[2023-10-20] MEDS: COUMADIN 2 MG PO (14:38)
--- NOTE | 2023-10-20 15:28 | CM ---
Reviewed chart. Ms. Daly is ready for dischareg today. Telephone call to [facility] to see if they could do the blood drw on Tuesday10/21/23. [facility] can not do the blod draw on Tuesday. They will see her on Tuesday and do the
blood draw then. Script given to Ms. Daly to go to [facility] om Tuesday for a blood draw. Results to Dr. Camarillo.
== END 2023-10-20 15:41 | disposition home health service (06) | DRG 220 ==
LOC: CVICU 05:05
PROVIDERS: Anesthesiology; Clinical Nurse Specialist Acute Care; Nurse Practitioner; Physician Assistant Medical; Physician Assistant Surgical; ADMITTING PHYSICIAN Thoracic Surgery (Cardiothoracic Vascular Surgery); CONSULT PHYSICIAN Internal Medicine Critical Care Medicine; FAMILY PHYSICIAN Family Medicine
PROC: B24BZZ4 Ultrasonography of Heart with Aorta, Transesophageal (ICD-10-PCS; 2023-10-17)
PROC: 5A1221Z Performance of Cardiac Output, Continuous (ICD-10-PCS; 2023-10-17)
PROC: 02RG0JZ Replacement of Mitral Valve with Synthetic Substitute, Open Approach (ICD-10-PCS; 2023-10-17)
DX: I05.2 Rheumatic mitral stenosis with insufficiency (principal); D62 Acute posthemorrhagic anemia; J98.11 Atelectasis; I30.9 Acute pericarditis, unspecified; I27.20 Pulmonary hypertension, unspecified; N92.0 Excessive and frequent menstruation with regular cycle; I49.1 Atrial premature depolarization; R73.9 Hyperglycemia, unspecified; E78.00 Pure hypercholesterolemia, unspecified; J44.9 Chronic obstructive pulmonary disease, unspecified; H11.003 Unspecified pterygium of eye, bilateral; F41.9 Anxiety disorder, unspecified; E86.1 Hypovolemia; E87.70 Fluid overload, unspecified; Z79.82 Long term (current) use of aspirin; Z79.899 Other long term (current) drug therapy; Z82.49 Family history of ischemic heart disease and other diseases of the circulatory system; Z83.2 Family history of diseases of the blood and blood-forming organs and certain disorders involving the immune mechanism; Z87.891 Personal history of nicotine dependence
CPT/HCPCS: 88305; 93308; 36415; 71045; 80048; 80053; 81003; 81015; 81025; 82248; 82330; 82565; 82805; 82947; 82962; 83036; 83735; 84132; 84302; 84520; 85014; 85018; 85025; 85027; 85049; 85610; 85730; 86850; 86900; 86901; 86920; 87070; 93005; 93312; 93320; 93321; 93325; 94002; 94010; 94060; 99406; J2916; P9045

== ENCOUNTER → 2024-02-03 09:46 | Outpatient (REF) | payer OTHER, SELFPAY | LOC: RAD 09:46 | PROVIDERS: ATTENDING PHYSICIAN Nurse Practitioner Adult Health; FAMILY PHYSICIAN Family Medicine | DX: J90 Pleural effusion, not elsewhere classified (principal); R06.09 Other forms of dyspnea; R07.81 Pleurodynia | CPT/HCPCS: 71046 ==

== ENCOUNTER → 2024-07-11 16:21 | Outpatient (REF) | payer OTHER, SELFPAY | LOC: RCS 16:21 | PROVIDERS: ATTENDING PHYSICIAN Thoracic Surgery (Cardiothoracic Vascular Surgery); FAMILY PHYSICIAN Family Medicine | DX: Z95.2 Presence of prosthetic heart valve (principal) | CPT/HCPCS: 93306 ==